=== PATIENT | female | born 1985 | race Caucasian/White ===

== ENCOUNTER 2017-05-19 00:33 | Inpatient (IN) | payer OTHER ==
[~2017-05-19] VITALS: Ht 167.6 cm; Wt 73.0 kg
[~2017-05-19 00:33] MED LIST: Docusate Sodium PO; Ibuprofen PO; PREN-99 PO
[2017-05-19] MEDS ORDERED: Methylergonovine 0.2 mg/mL Inj IM PRN ×2 (08:50→17:10)
[2017-05-19] MEDS ORDERED: Hemorrhage Kit, Post Partum XX ONE ×2 (08:50→17:10)
[2017-05-19] MEDS ORDERED: Penicillin G K Inj 5,000,000 UNITS in Dextrose 5% Minibag Plus 100 ML IV ONE (08:50)
[2017-05-19] MEDS ORDERED: Carboprost 250 mCg/mL Inj IM PRN ×2 (08:50→17:10)
[2017-05-19] MEDS ORDERED: Oxytocin 30 Units/500 mL LR 30 UNITS in IV Premix 1 EACH IV PRN ×2 (08:50→17:10)
[2017-05-19] MEDS ORDERED: Sodium Chloride LOK Flush 10 mL Syringe IVFLUSH PRN (08:50)
[2017-05-19] MEDS ORDERED: Oxytocin 10 Unit/mL Inj IM PRN ×2 (08:50→17:10)
[2017-05-19 08:55] LABS: Mean Corpuscular Hemoglobin 24.1 pg (27.0-35.0); Mean Corpuscular Volume 80.2 fL (81-100)
[2017-05-19] MEDS ORDERED: fentaNYL-PF 50 mCg/mL 2 mL Inj IVPUSH PRN (09:20)
[2017-05-19] MEDS ORDERED: Misoprostol 25 mCg/0.25 Tablet VAGINAL SCH (09:20)
[2017-05-19] MEDS: Lactated Ringer's 1,000 ML IV PRN ×2 (09:39→12:47)
[2017-05-19] MEDS ORDERED: Oxytocin 30 Units/500 mL LR 30 UNITS in IV Premix 1 EACH IV SCH (09:55)
[2017-05-19] MEDS ORDERED: fentaNYL 2 mCg/mL-Bupivicaine 0.125% 100 mL Premix EPIDURAL ONE (12:58)
[2017-05-19] MEDS ORDERED: Penicillin G K Inj 3,000,000 UNITS in IV Premix 1 EACH IV SCH (13:00)
[2017-05-19] MEDS ORDERED: Lactated Ringer's 500 ML IV ONE (13:52)
[2017-05-19] MEDS ORDERED: Lactated Ringer's 1,000 ML IV SCH ×2 (13:52→17:10)
--- NOTE | 2017-05-19 13:52 | PCM.HPANE ---
Patient Data Surgeon Admitting Provider:Maurice Dawson MD Attending Provider:Maurice Dawson MD Primary Care Physician:Maurice Dawson MD Other Provider: Reason for Visit Induction INDUCTION Ht/WT & BMI Body Mass Index Allergies Coded Allergies: No Known Allergies (Unverified Allergy, 09/03/10) Past Anesthesia History Anesthesia History: Denies:: Abnormal Airway, Anesthesia Reactions, Difficult Intubation, Fam Anesthesia Reaction, Fam Malignant Hypertherm, Malignant Hyperthermia Diabetes History Hx Diabetes?: No Medications Active Scripts Pnv95/Ferrous Fumarate/FA ( Multivitamins Tablet)1 Each Tablet1 Each PO DAILY #30 Prov:Angie Lozano MD 06/23/14 [Ibuprofen] (Motrin)800 MG TABLET No Conflict [id number] Mg PO Q6H PRN For Pain # 30 TABLET Prov:Angie Lozano MD 06/23/14 [Docusate Sodium] (Colace)100 MG CAPSULE No Conflict [id number] Mg PO BID PRN For Constipation #30 CAPSULE Prov:Angie Lozano MD 06/23/14 History History of ENT Problems?: No HEENT History: Denies:: Abnormal Airway Cataracts Difficult Intubation Dysphagia Glaucoma Hearing Problem Sinus Problem TMJ Denture Type: None Teeth Condition: Within Normal Limits Hx of Heart Problems?: No Cardiovascular History: Denies:: AICD Abdominal Aortic Aneurism Atrial Fibrillation Cardiac Surgery Chest Pain Congestive Heart Failure Coronary Artery Disease Edema Heart Murmur Hypertension Irregular Heartbeat Pacemaker Peripheral Vascular Rheumatic Fever Thrombophlebitis Valvular Heart Disease Hx of Respiratory Problem?: No Respiratory History: Denies:: Asthma COPD Chest Surgery Cough Dyspnea Emphysema Hemoptysis Oxygen Administration Pneumonia Pulmonary Embolism Tuberculosis Use of C-PAP Machine Use of Inhalers / NEBS Hx Neurologic Problems?: No Neurological History: Denies:: Alzheimer's Disease CVA Dementia Dizziness Headaches Multiple Sclerosis Parkinson's Disease Peripheral Neuropathy Seizures TIA Hx of GI Problems?: Yes Gastrointestinal History: Denies:: Cirrhosis Diverticulitis Gall Bladder Disease Gastroesphageal Reflux Gastrointestinal Bleeding Heartburn Hepatitis Hiatal Hernia Liver Disease Rectal Bleeding Hx of Problems?: No HX of Peritoneal Dialysis: No Female Hx: Positive for:: Currently Denies:: Endometriosis Pelvic Inflammatory Problems with Breasts? Skin History: Denies:: History Skin Disorders? Pressure Ulcers Hx Musculoskeletal Problems?: No Hx of Psycho/Social Problems?: No Hx Surgeries?: No Hx Diabetes: No Smoking Status: Never Smoker Stop/Bang Risk Assessment Category Category 1A: Patient has history of documented sleep apnea, and HAS NOT received any narcotic, sedative or anesthesia administration during this stay. Category 1B: Patient has history of documented sleep apnea, and HAS received any narcotic , sedative or anesthesia administration during this stay Category 2: Patient has SUSPECTED Obstructive Sleep Apnea, and HAS received any narcotic , sedative or anesthesia administration during this stay. Category 3: Patient has SUSPECTED Obstructive Sleep Apnea and HAS NOT received narcotic, sedative or anesthesia administration during this stay. Category 4: Outpatient in Procedural Areas with known sleep apnea or who screen positive for High Risk via the STOP/BANG questionnaire. Exam Exam General Appearance: Alert, Oriented X3, Cooperative, No Acute Distress HEENT/AIRWAY: MP 2, Neck Movement (FROM), Mouth Opening (3 FBMO) Lungs: Clear to Auscultation, Normal Air Movement Heart: Exam Unremarkable, Regular Rate/Rhythm, No Murmurs/Rubs/Gallops Meds/Labs/Diagnostics Admission Meds Current Medications Penicillin G Potassium [id number] units/Dextrose/ Water 100 ml @ 240 mls/hr ONCE ONCE IV Last administered on 05/19/17 09:39; Start 05/19/17 at 08:50; Stop at 09:14; Status DC Penicillin G Potassium/ Dextrose/Premix (Pfizerpen Inj/ IV Premix) 50 ml @ 100 mls/hr Q4H IV Last administered on 05/19/17 12:47; Start 05/19/17 at 13:00 Labs Test 05/19/17 08:15 White Blood Count 7.4th/mm3 (3.8-10.1) Red Blood Count 4.35mil/mm3 (3.90-5.20) Hemoglobin 10.5g/dL (12.0-15.6) Hematocrit 34.9% (35.0-46.0) Mean Corpuscular Volume 80.2fL (81-100) Mean Corpuscular Hemoglobin 24.1pg (27.0-35.0) Mean Corpuscular Hemoglobin Concent 30.1% (32.0-37.0) Red Cell Distribution Width 18.1% (12.3-15.4) Platelet Count 342bil/L (150-400) Plan Impression Patient chart reviewed, patient interviewed and anesthestic plan with risks, benefits, and alternatives discussed, and informed consent obtained. NPO per Anesth. Guidelines: Yes ASA Physical Status: ASA1 Normal Healthy Anesthetic Plan: Epidural Bene/Risks/Altern/Consents: Yes HP Complete Prior to Induction: Yes Davon Ulloa MD May 19, 2017 12:57
[2017-05-19] MEDS ORDERED: fentaNYL 2 mCg/mL-Bupiv 0.125% 100 ML EPIDURAL SCH (13:55)
[2017-05-19] MEDS ORDERED: Atropine 1 mg/10 mL (Code) Syringe IVPUSH PRN (13:55)
[2017-05-19] MEDS ORDERED: EPHEDrine Sulfate 50 mg/mL Inj IVPUSH PRN (13:55)
[2017-05-19] MEDS ORDERED: Witch Hazel-Glycerin Pads TOPICAL PRN (17:10)
[2017-05-19] MEDS ORDERED: LANOlin HPA 7 Gm Ointment TOPICAL PRN (17:10)
[2017-05-19] MEDS ORDERED: Benzocaine (Dermoplast) 20% 60 Gm Spray TOPICAL PRN (17:10)
--- NOTE | 2017-05-19 19:33 | PCM.ANEP1 ---
Post Anesthesia PACU Phase 1 Assessment Anesthetic Administered: Epidural Level of Alertness: Awake, talking JACOBSEN's with Equal Strength: Yes Pain: No Nausea or Vomiting: No CV Function & Hydration Stable: No Airway Device: n/a Oxygen Delivery: Room Air Lungs: Clear to Auscultation, Normal Air Movement Dermatome Level: Full Sensation (sensation returning) PACU Phase 2 Assessment Complications: No Follow up Care: N/A Patient Instructions Provided: N/A Davon Ulloa MD May 19, 2017 19:33
--- NOTE | 2017-05-20 02:51 | OP ---
[address] [address] OPERATIVE REPORT PATIENT: MARIALUISA RAMOS : 1985 MR#: [id number] ADMIT: 05/19/2017 JOB ID: [id number] DATE OF SURGERY: 05/19/2017. PREOPERATIVE DIAGNOSIS(ES): POSTOPERATIVE DIAGNOSIS(ES): SURGEON: DELIVERY SUMMARY: On May 19, 2017, at 4:53 p.m., this 32-year-old, G5, P4 female at 40 weeks and 2 days estimated gestational age, delivered a vigorous male with Apgars of 8 and 9 by normal vaginal delivery. The patient presented for induction at 7:30 this morning. The reason for induction was her history of quick labor and her GBS positive status. The patient was started on Pitocin and progressed in relatively quick fashion to 5 cm dilation. She then required an epidural. Prior to this, she had received one dose of antibiotics and she received another 3-4 hours in advance of delivery. Penicillin was the chosen antibiotic. The patient's reached 8 cm before I arrived and artificially ruptured her membranes. This resulted in copious clear fluid. The patient at this point rapidly progressed over the next 45 minutes to complete, and pushed for approximately eight minutes. On presentation of the vertex, the fetus was noted then to have a nuchal cord x3 which was actually relatively easily reduced. At no time did the fetus show signs of distress prior to delivery that would have been expected by a triple nuchal cord. The cord was also noted to be quite long and have a normal thickness. Once the head delivered, the body delivered with somewhat difficulty over about 30 seconds. The was delivered up and onto the patient, and delayed cord clamping was performed. Just before cutting the cord, a vigorous cry was noted and the infant was notably responding to stimulation and drying. The cord was cut and the cord blood was sent for analysis. The patient was noted to have a first-degree midline perineal and first-degree midline vaginal tear. This was repaired in the usual fashion with 3-0 Vicryl. The patient's estimated blood loss was noted to be 200-300 cc. Following the procedure, the patient's uterus was found to be firm, her rectum intact, and her cervix intact. The patient had no other complications and was in excellent condition following the procedure. Pitocin was kept running at 350 cc an hour due to the fact the patient was a grand multip.
[2017-05-20] MEDS: HYDROcodone-APAP 5-325 mg Tablet PO PRN ×5 (04:30→23:45)
[2017-05-20 07:21] LABS: Mean Corpuscular Hemoglobin 24.5 pg (27.0-35.0); Mean Corpuscular Volume 81.2 fL (81-100)
--- NOTE | 2017-05-20 13:32 | PCM.PNOBPP ---
Subjective Date of Service May 20, 2017 Post : Spontaneous Vaginal Delivery Lochia: Normal Pain Management: PO pain meds Gastrointestinal: Good Appetite, No N/V Postop Activity: Ambulating Independently Labs Laboratory Tests 05/20/17 06:30: White Blood Count 10.6, Red Blood Count 3.88, Hemoglobin 9.5, Hematocrit 31.5, Mean Corpuscular Volume 81.2, Mean Corpuscular Hemoglobin 24.5, Mean Corpuscular Hemoglobin Concent 30.2, Red Cell Distribution Width 17.8, Platelet Count 288 Exam Vital Signs Vital Signs: VS reviewed, stable Exam Abdomen: Fundus firm Heart: Exam Unremarkable General: Alert, Oriented X3 OB Post Assessment/Plan Problems: (1) Status post normal vaginal delivery Status: Acute ICD Code: [id number] Pain Evaluation: Adequate Pain Control Post plan: Continue routine post care, Discharge home tomorrow Maurice Dawson MD May 20, 2017 13:32
[2017-05-21] MEDS: HYDROcodone-APAP 5-325 mg Tablet PO PRN (03:54)
--- NOTE | 2017-05-21 07:47 | PCM.DC.OB ---
Obstetrical Discharge Summary Date of Service May 21, 2017 Date of hospital admission May 19, 2017 at 07:14 Date of Discharge: May 21, 2017 Providers Admitting Physician: Maurice Dawson MD Primary Care Physician: Maurice Dawson MD Attending Physician: Maurice Dawson MD Problems: (1) Status post normal vaginal delivery Status: Acute ICD Code: [id number] Consultations None Invasive procedures NVD with epidural after labor started by induction Date of Procedure: May 19, 2017 Hospital Course: Patient induction was successful. Minimal tear. No complications. Recovered in normal fashion. Hct was 31 post . ([Docusate Sodium]) 100 MG CAPSULE 100 MG PO BID PRN PRN For Constipation Prescribed by: KAYCEE RAYGOZA MD ([Ibuprofen]) 800 MG TABLET 600 MG PO Q6H PRN PRN For Pain Prescribed by: KAYCEE RAYGOZA MD Pnv95/Ferrous Fumarate/FA ( Multivitamins Tablet) 1 Each Tablet 1 EACH PO DAILY Prescribed by: KAYCEE RAYGOZA MD Follow-up plan See me in 8 weeks. Discharge Diet: No restrictions Discharge Activity-General: Pelvic Rest for 6 weeks, Try not to overdue, Be up and about, Balance rest and activity, Activity as pain allows, Activity as energy allows, No lifting >15 pounds for 2 weeks Maurice Dawson MD May 21, 2017 07:47
--- NOTE | 2017-05-21 07:49 | PCM.DIOB ---
Obstetrical Disch Instruction Date of Service: May 21, 2017 Dates of Hospitalization Date of Hospital Admission May 19, 2017 at 07:14 Providers Admitting Physician: Maurice Dawson MD Primary Care Physician: Maurice Dawson MD Attending Physician: Maurice Dawson MD Discharge Diagnosis Problems: (1) Status post normal vaginal delivery Status: Acute ICD Code: [id number] Diet Discharge Diet: No restrictions Activity Discharge Activity-General: Pelvic Rest for 6 weeks, Try not to overdue, Balance rest and activity, Activity as pain allows, Activity as energy allows, No lifting >15 pounds for 2 weeks Dressing and Incisional Care Hygiene: May shower, Perineal care, Sitz bath, Dermoplast spray, Witch Maria C pads Follow Up Plan Follow-up Provider (F9): Maurice Dawson MD Follow-up appointment: Weeks (8) Call your provider for: Fever or Chills, Heavy vaginal bleeding, Excessive constipation, Vaginal discomfort, Red painful breasts Maurice Dawson MD May 21, 2017 07:49
[2017-05-21] MEDS ORDERED: IBUP800T28 PO (07:50)
[2017-05-21 08:32] VITALS: BP 123/77; PULSE 96; RESP 18
== END 2017-05-21 08:53 | disposition home or self-care (01) | DRG 775 ==
LOC: FBC 07:14
PROVIDERS: ADMIT Family Medicine; ATTEND Family Medicine
PROC: 10E0XZZ Delivery of Products of Conception, External Approach (ICD-10-PCS; principal; 2017-05-19)
PROC: 0HQ9XZZ Repair Perineum Skin, External Approach (ICD-10-PCS; 2017-05-19)
PROC: 10907ZC Drainage of Amniotic Fluid, Therapeutic from Products of Conception, Via Natural or Artificial Opening (ICD-10-PCS; 2017-05-19)
PROC: 3E033VJ Introduction of Other Hormone into Peripheral Vein, Percutaneous Approach (ICD-10-PCS; 2017-05-19)
DX: O99.824 Streptococcus B carrier state complicating childbirth (principal); O70.0 First degree perineal laceration during delivery; O69.81X0 Labor and delivery complicated by cord around neck, without compression, not applicable or unspecified; Z3A.40 40 weeks gestation of pregnancy; Z37.0 Single live birth